=== PATIENT | female | born 1960 | race Caucasian/White ===

== ENCOUNTER 2020-05-07 12:00 | Emergency (ER) | payer OTHER ==
[~2020-05-07] VITALS: Ht 154.9 cm; Wt 54.0 kg
[2020-05-07] MEDS ORDERED: LIDOCAINE HCL 1% 20ML VIAL (Pyxis) INJ INFIL ONE (12:30)
[2020-05-07] MEDS ORDERED: MORPHINE SULFATE 4 MG/ML CPJ (NOT FOR IM USE) IV ONE (12:30)
[2020-05-07 15:36] VITALS: BP 143/105
== END 2020-05-07 15:38 | disposition home or self-care (01) ==
LOC: ER 12:17
DX: S43.014A Anterior dislocation of right humerus, initial encounter (principal); Z98.890 Other specified postprocedural states; X58.XXXA Exposure to other specified factors, initial encounter; Y93.11 Activity, swimming; Y92.89 Other specified places as the place of occurrence of the external cause
CPT/HCPCS: 23650; 73030; 96374; 99284; J2270; J3490